=== PATIENT | female | born 1965 | race Caucasian/White ===

== ENCOUNTER 2017-05-10 09:30 | Outpatient (RCR) | payer OTHER ==
[~2017-05-10 09:30] MED LIST: CALCIUM 600MG+D1 TAB PO; GLUCOSAMINE & C1 CA1 PO; IBU400 MG PO
== END 2017-05-14 ==
LOC: WSPT
DX: M17.12 Unilateral primary osteoarthritis, left knee (principal)
CPT/HCPCS: G8978-GP; G8979-GP